=== PATIENT | female | born 1940 | race Caucasian/White ===

== ENCOUNTER → 2024-02-17 10:57 | Outpatient (REF) | payer MEDICARE, OTHER, SELFPAY ==
[2024-02-17 15:54] LABS: % Basophils 1.1 % (0-2); % Eosinophils 3.2 % (0-6); % Immature Granulocytes 0.2 % (0-0.5); % Monocytes 7.5 % (1.7-9.3); Absolute Basophils 0.1 10^3/uL (0-0.2); Absolute Eosinophils 0.2 10^3/uL (0-0.7); Absolute Lymphocytes 2.3 10^3/uL (1.2-3.4); Absolute Monocytes 0.5 10^3/uL (0.1-0.6); Absolute Neutrophils 3.3 10^3/uL (1.4-6.5); Hematocrit 42.8 % (37.0-47.0); Hemoglobin 14.5 g/dL (12.0-16.0); Mean Corp Hgb Conc. 33.9 g/dL (33.0-37.0); Mean Corpuscular Hgb 28.5 pg (27.0-31.0); Mean Corpuscular Volume 84.1 fL (81.0-99.0); Mean Platelet Volume 9.9 fL (7.4-10.4); Nucleated Red Blood Cells % 0 %; Platelet Count 248 10^3/uL (130-400); Red Blood Cell Count 5.09 10^6/uL (4.20-5.40); Red Cell Dist. Width 13.7 % (11.5-14.5); White Blood Cell Count 6.3 10^3/uL (4.8-10.8)
[2024-02-17 15:58] LABS: ALT (SGPT) 20 U/L (0-35); AST (SGOT) 26 U/L (14-36); Albumin 4.2 g/dl (3.5-5.0); Alkaline Phosphatase 87 U/L (38-126); Blood Urea Nitrogen 26 mg/dl (7-17); Calcium 9.5 mg/dl (8.4-10.2); Carbon Dioxide 28 mmol/L (22-30); Chloride 99 mmol/L (98-107); Glucose 92 mg/dl (70-99); HDL Cholesterol 70 mg/dl; LDL Cholesterol, Calculated 184 mg/dl; Magnesium 1.9 mg/dl (1.6-2.3); Potassium 3.5 mmol/L (3.5-5.1); Sodium 138 mmol/L (135-145); Total Bilirubin 1.2 mg/dl (0.2-1.3); Total Cholesterol 276 mg/dl (50-199); Total Protein 6.9 g/dl (6.3-8.2); Triglyceride 112 mg/dl (10-149); Very Low Density Lipoprotein 22 mg/dl (0-30)
[2024-02-17 16:05] LABS: Fibrinogen 426 MG/DL (199-459)
[2024-02-17 16:15] LABS: Free T3 5.65 pg/ml (2.77-5.27); Free T4 1.16 ng/dl (0.78-2.19)
[2024-02-17 16:29] LABS: TSH 0.85 uIU/ml (0.47-4.68)
[2024-02-18 08:50] LABS: Glycohemoglobin (HgbA1c) 5.3 % (4.0-5.6)
[2024-02-19 23:02] LABS: Insulin, Random 17 uIU/mL
[2024-02-19 23:30] LABS: Total T3 (Sendout) 197 ng/dL (80-200)
== END ==
LOC: HWLAB 10:57
PROVIDERS: ATTENDING PHYSICIAN Family Medicine
DX: D68.8 Other specified coagulation defects (principal); E03.9 Hypothyroidism, unspecified; I10 Essential (primary) hypertension; R73.09 Other abnormal glucose
CPT/HCPCS: 36415; 80053; 80061; 83036; 83525; 83735; 84439; 84443; 84480; 84481; 85025; 85384

== ENCOUNTER → 2025-02-20 08:03 | Outpatient (REF) | payer MEDICARE, OTHER, SELFPAY ==
[2025-02-20 13:19] LABS: Urine Character Clear (Clear)
[2025-02-20 13:43] LABS: Urine Red Blood Cell 0-2 /HPF (0-2)
== END ==
LOC: HWLAB 08:03
PROVIDERS: ATTENDING PHYSICIAN Family Medicine
DX: R30.0 Dysuria (principal)
CPT/HCPCS: 81003; 81015; 87086

== ENCOUNTER → 2025-02-28 09:51 | Outpatient (REF) | payer MEDICARE, OTHER, SELFPAY | LOC: RST 09:51 | PROVIDERS: ATTENDING PHYSICIAN Student in an Organized Health Care Education/Training Program; FAMILY PHYSICIAN Family Medicine | DX: R13.10 Dysphagia, unspecified (principal) | CPT/HCPCS: 74230; 92611 ==

== ENCOUNTER → 2025-03-01 10:59 | Outpatient (REF) | payer MEDICARE, OTHER, SELFPAY ==
[2025-03-01 15:18] LABS: Urine Character Clear (Clear)
[2025-03-01 17:01] LABS: Urine Red Blood Cell 0-2 /HPF (0-2); Urine White Cell 0-2 /HPF (0-5)
== END ==
LOC: HWLAB 10:59
PROVIDERS: ATTENDING PHYSICIAN Family Medicine
DX: R30.0 Dysuria (principal)
CPT/HCPCS: 81003; 81015; 87086

== ENCOUNTER → 2025-03-16 08:42 | Outpatient (REF) | payer MEDICARE, OTHER, SELFPAY ==
[2025-03-16 12:53] LABS: Hematocrit 43.6 % (37.0-47.0); Hemoglobin 14.4 g/dL (12.0-16.0); Mean Corp Hgb Conc. 33.0 g/dL (33.0-37.0); Mean Corpuscular Volume 87.6 fL (81.0-99.0); Nucleated Red Blood Cells % 0 %; Platelet Count 254 10^3/uL (130-400); Red Cell Dist. Width 13.5 % (11.5-14.5)
[2025-03-16 13:07] LABS: ALT (SGPT) 14 U/L (0-35); AST (SGOT) 20 U/L (14-36); Albumin 4.1 g/dl (3.5-5.0); Alkaline Phosphatase 96 U/L (38-126); Blood Urea Nitrogen 17 mg/dl (7-17); Calcium 9.5 mg/dl (8.4-10.2); Carbon Dioxide 31 mmol/L (22-30); Chloride 98 mmol/L (98-107); Glucose 86 mg/dl (70-99); HDL Cholesterol 53 mg/dl; LDL Cholesterol, Calculated 172 mg/dl; Potassium 3.2 mmol/L (3.5-5.1); Sodium 133 mmol/L (135-145); Total Protein 7.1 g/dl (6.3-8.2); Very Low Density Lipoprotein 30 mg/dl (0-30); eGFR > 60.00
[2025-03-16 13:22] LABS: Free T3 3.96 pg/ml (2.77-5.27)
[2025-03-16 13:36] LABS: TSH 0.92 uIU/ml (0.47-4.68)
[2025-03-16 13:45] LABS: Glycohemoglobin (HgbA1c) 5.3 % (4.0-5.9)
[2025-03-18 08:24] LABS: Total T3 (Sendout) 104 ng/dL (80-200)
== END ==
LOC: HWLAB 08:42
PROVIDERS: ATTENDING PHYSICIAN Family Medicine
DX: E03.9 Hypothyroidism, unspecified (principal); E78.2 Mixed hyperlipidemia; G93.32 Myalgic encephalomyelitis/chronic fatigue syndrome; R73.09 Other abnormal glucose
CPT/HCPCS: 36415; 80053; 80061; 83036; 83525; 84439; 84443; 84480; 84481; 85025